=== PATIENT | male | born 1970 | race African-American/Black ===

== ENCOUNTER → 2016-08-20 | Outpatient (CLI) | payer BC ==
[~2016-08-20] VITALS: Ht 175.3 cm; Wt 101.6 kg
[~2016-08-20] MED LIST: AMLODIPINE-BEN1 EAC5 PO; HYDROCODONE-AP1 EAC6 PO; LOSARTAN-HCTZ1 EAC1 PO; NABUMETONE 750750 M1 PO
--- NOTE | ~2016-08-20 | HPC ---
[facility] [address] [place] [address] PAIN MANAGEMENT CONSULTATION Name: SHAYLA BARR Room #: REG SHANEMike Hager#: [id number] Admission: 08/20/16 Attend Phys: Jacob Mata DO Discharge: Date of : 72 Report #: [id number] THIS REPORT FOR: //name// CC: Watson Mata The patient is a pleasant 46-year-old gentleman seen in consultation at the request of Dr. Thomas for evaluation pain in the left lateral leg to ankle. Some mid low back pain. Notes pain is chronic, off and on, typically treated conservatively. 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 He notes current exacerbation of pain began in May without antecedent trauma and overuse. He has tried chiropractic manipulation, which made symptoms worse. Does take anti-inflammatory medications periodically with some relief. Notes standing significantly exacerbates the pain. Nothing in particularly seems to make it better. He notes continuous aching pain, rates anywhere from 8-10 on a 0-10 visual analog scale. Does have some paresthesia in the left leg and subjective weakness. He notes his gait may be a little changed as he somewhat his right knee status post right ACL repair. The patient denies bowel or bladder continence changes and myelopathic symptoms. REVIEW OF SYSTEMS: Complete review of systems attached to chart and gone over with the patient. He is . Smokes which he has for 25 years, down to a little under a pack a day and was cautioned about smoking cessation and correlation of nicotine use with axial back pain. He drinks alcohol socially. 12-point review of systems was gone over, the patient hypertension for which he taken amlodipine and losartan. Otherwise, review of systems is fairly unremarkable. 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 Pain impact score, however, still fairly high, averaging about 7.8 for all indices queried. PHYSICAL EXAMINATION: VITAL SIGNS: Reveals a 5 feet 9 inches, 224 pounds gentleman, BMI is 33.1 kilograms per meter squared. Blood pressure is 132/95, pulse 84, respirations 16. NEUROLOGIC: Cranial nerves 2-12 grossly intact. HEENT: Pupils equal, reactive to light and accommodation. Extraocular muscles are intact. NECK: Cervical range of motion is full. Thyroid is enlarged, no nodules are noted. HEART: Regular rate and rhythm without murmur. LUNGS: Clear to auscultation. EXTREMITIES: Upper extremity strength is preserved. Rises from chair using armrest. Modestly antalgic gait. Tender across the low back from about L4 down to nerve of the SI joints as well. Left hip flexion and lower extremity (left) flexion strength is diminished about 3-4/5 to objective testing. All other muscles are 5/5. Grossly positive straight leg raise at 30 degrees on the left. [facility] [address] [place] [address] PAIN MANAGEMENT CONSULTATION Name: SHAYLA BARR Room #: REG RADHA Hager#: [id number] Admission: 08/20/16 Attend Phys: Jacob Mata DO Discharge: Date of : 72 Report #: [id number] Patellar reflex absent, but symmetric. Achilles reflexes 1/4 and symmetric. DIAGNOSTIC STUDIES: MRI of the lumbar spine from 02/21/2016 noting circumferential disk bulge throughout all the lumbar spine; however L4-L5 notes a left paracentral disk protrusion. There is an annular tear at L5-S1. ASSESSMENT: Symptomatic lumbar radiculopathy, having failed conservative therapy diagnosis by exam and correlated with MRI findings. RECOMMENDATION: 1. Hydrocodone 5/325, dispense 30 tablets, one after work and at bedtime, caution with daytime somnolence, mental acuity changes, constipation. 2. Relafen 750 mg b.i.d. 3. Fluoroscopic-guided epidural injection today at L4-L5. 4. Follow up in 4 weeks to reevaluate. ASSESSMENT: Symptomatic lumbar radiculopathy. PROCEDURE: Lumbar epidural injection under fluoroscopy. PROCEDURE NOTE: After both written and informed consent to include risk of spinal cord damage, increased pain, weakness and dural puncture, the patient was taken to the fluoroscopy suite, placed in the prone position. After sterile prep and drape, a skin wheal with lidocaine was raised. A 22-gauge epidural Tuohy needle was inserted in the midline at L4-L5 with good loss to resistance. Negative aspiration for cerebrospinal fluid or blood was noted. Then 1 mL of Omnipaque under biplanar fluoroscopy showed good spread within the epidural space. This was followed with 80 mg of triamcinolone plus 1 mL of 1.5% preservative-free Xylocaine, 0.5 mL Xylocaine was then injected to flush the needle; it was removed. The patient was monitored for an appropriate period of time and discharged in good and stable condition. By: [id number] Jacob Mata DO /nt
[2016-08-20 08:15] VITALS: BP 132/95
== END ==
LOC: PAIN 06:47
DX: M54.16 Radiculopathy, lumbar region (principal); I10 Essential (primary) hypertension; F17.213 Nicotine dependence, cigarettes, with withdrawal

== ENCOUNTER → 2016-09-21 | Outpatient (CLI) | payer BC ==
[~2016-09-21] VITALS: Ht 175.3 cm; Wt 96.4 kg
--- NOTE | ~2016-09-21 | HPC ---
[facility] [place] [address] PAIN MANAGEMENT CONSULTATION Name: SHAYLA BARR Room #: REG RADHA Hager#: [id number] Admission: 09/21/16 Attend Phys: Jacob Mata DO Discharge: Date of : 72 Report #: [id number] THIS REPORT FOR: //name// CC: Watson Mata The patient is a 46-year-old gentleman, prior seen in the pain clinic on 08/20/2016, diagnosed with symptomatic lumbar radiculopathy. We did one epidural injection at that time, which the patient notes afforded 50% relief, though pain has begun to recur. He notes the pain gets up to an 8/10, numbness and tingling in low back, left buttock, and leg. This is compatible with his MRI findings from 02/21/2016 noting L4-L5 to have a left paracentral disk bulge with left lateral recess narrowing. PHYSICAL EXAMINATION: Shows a 46-year-old gentleman, BMI is 39.4 kilograms per meter squared. Vital signs stable. Rises from the chair using armrest. Positive straight leg raise on the left with slight decreased left hip flexion and lower extremity extension strength. ASSESSMENT: Symptomatic lumbar radiculopathy with incremental improvement following one epidural injection. RECOMMENDATIONS: 1. Repeat epidural injection under fluoroscopy today. 2. We will renew Relafen 750 mg b.i.d. and hydrocodone 5/325 one tablet after work and one at bedtime, limit 45 tablets for 30 days. Follow up in 4 weeks for reevaluation. ASSESSMENT: Symptomatic lumbar radiculopathy, incremental relief with one injection. PROCEDURE: Lumbar epidural injection under fluoroscopy. DESCRIPTION OF PROCEDURE: After both written and informed consent to include risk of spinal cord damage, increased pain, weakness and dural puncture, the patient was taken to the fluoroscopy suite, placed in the prone position. After sterile prep and drape, a skin wheal with lidocaine was raised. A 22-gauge epidural Tuohy needle was inserted in the midline at L4-L5 with good loss to resistance. Negative aspiration for cerebrospinal fluid or blood was noted. Then 1 mL of Omnipaque under biplanar fluoroscopy showed good spread within the epidural space. This was followed with 80 mg of triamcinolone plus 1 mL of 1.5% preservative-free Xylocaine, 0.5 mL Xylocaine was then injected to flush the [facility] [address] [place] [address] PAIN MANAGEMENT CONSULTATION Name: SHAYLA BARR Room #: REG CLI Madan#: [id number] Admission: 09/21/16 Attend Phys: Jacob Mata DO Discharge: Date of : 72 Report #: [id number] needle; it was removed. The patient was monitored for an appropriate period of time and discharged in good and stable condition. <ELECTRONICALLY SIGNED> By: Jacob Mata DO 09/26/16 [id number] Jacob Mata DO /adamaris
[2016-09-21 09:03] VITALS: BP 123/86
== END | disposition home or self-care (01) ==
LOC: PAIN 09-20 07:09
DX: M54.16 Radiculopathy, lumbar region (principal); F17.200 Nicotine dependence, unspecified, uncomplicated